=== PATIENT | male | born 1945 | race Caucasian/White ===

== ENCOUNTER 2024-12-18 06:26 | Observation (INO) | payer MEDICARE, BC ==
[2024-12-16 12:33] LABS: BASOPHILS % 0.6 % (0.0-1.0); EOSINOPHILS # (AUTO) 0.3 (0.0-0.4); EOSINOPHILS % 3.6 % (0.0-6.0); HEMATOCRIT 43.6 % (38.2-49.6); HEMOGLOBIN 14.8 g/dL (14.0-18.0); LYMPHOCYTES # (AUTO) 1.6 (1.0-3.2); LYMPHOCYTES % 23.3 % (18.0-39.1); MEAN CORPUSCULAR HGB CONC 33.9 g/dL (31-35); MEAN CORPUSCULAR VOLUME 100.2 fL (81-99); MONOCYTES # (AUTO) 0.4 (0.2-0.8); MONOCYTES % 6.3 % (4.4-11.3); NEUTROPHILS # (AUTO) 4.6 (2.1-6.9); NEUTROPHILS % 66.1 % (38.7-80.0); PLATELET COUNT 270 x10e3/uL (140-360); RED BLOOD COUNT 4.35 x10e6/uL (4.3-5.7); WHITE BLOOD COUNT 6.95 x10e3/uL (4.8-10.8)
[~2024-12-18 06:26] MED LIST: AMLODIPINE BESYL5 MG PO; ASPIRIN81 MG PO; CLOPIDOGREL75 MG PO; EYE MULTIVITAM1 EAC4; FLOMAX0.4 MG PO; LORAZEPAM2 MG/1 M2; METOPROLOL TART25 MG PO; MULTI-VITAMIN1 EACH PO; SIMVASTATIN40 MG PO
[2024-12-18] MEDS: LACTATED RINGER'S 1,000 ML ONE (07:00)
[2024-12-18] MEDS: CEFAZOLIN SODIUM 2 GM ONE (07:01)
[2024-12-18] MEDS ORDERED: SEVOFLURANE INHAL SOLN 250 ML PEN BTL ONE (07:15)
[2024-12-18] MEDS ORDERED: ONDANSETRON HCL INJ 2MG/ML 2ML 2 MG/ML VIAL IV PRN (07:15)
[2024-12-18] MEDS ORDERED: PROPOFOL IV EMULSION 10 MG/ML 20 ML VIAL ONE (07:15)
[2024-12-18] MEDS ORDERED: ACETAMINOPHEN 1000 MG/100 ML 100 ML IV ONE (07:15)
[2024-12-18] MEDS ORDERED: HYDROCODONE/APAP 7.5MG-325MG 1 EA TAB PO PRN (07:15)
[2024-12-18] MEDS ORDERED: DOCUSATE SODIUM 100 MG CAP PO PRN (07:15)
[2024-12-18] MEDS ORDERED: DEXAMETHASONE SOD PHOS INJ 4 MG/ML SDV ONE (07:16)
[2024-12-18] MEDS ORDERED: ONDANSETRON HCL INJ 2MG/ML 2ML 2 MG/ML VIAL ONE (07:16)
[2024-12-18] MEDS ORDERED: FENTANYL CITRATE/PF 100MCG/2 ML INJ ONE ×2 (07:16→07:39)
[2024-12-18] MEDS ORDERED: BUPIVACAINE/EPI 0.5% 30ML SDV-MPF INJ ONE (07:39)
[2024-12-18] MEDS ORDERED: ROPIVACAINE/EPI/CLONIDINE/KET 50 ML SYRINGE INJ ONE (08:00)
[2024-12-18] MEDS ORDERED: ASPIRIN 325 MG TAB PO SCH (09:00)
[2024-12-18] MEDS ORDERED: EPHEDRINE SULFATE INJ 50 MG/ML VIAL ONE (10:28)
[2024-12-18 11:15] VITALS: TEMP 97.8
[2024-12-18 15:30] VITALS: BP 127/76; PULSE 70; RESP 18; O2SAT 97
[2024-12-18] MEDS ORDERED: TAMSULOSIN HCL 0.4 MG CAP PO SCH (17:00)
[2024-12-18] MEDS ORDERED: METOPROLOL TARTRATE 25 MG TAB PO SCH (17:00)
[2024-12-18] MEDS ORDERED: SIMVASTATIN 40 MG TAB PO SCH (21:00)
[2024-12-19] MEDS ORDERED: ACETAMINOPHEN 1000 MG/100 ML IV PRN (07:15)
[2024-12-19] MEDS ORDERED: ASPIRIN 81 MG CHEW TAB PO SCH (09:00)
[2024-12-19] MEDS ORDERED: AMLODIPINE BESYLATE 5 MG TAB PO SCH (09:00)
[2024-12-19] MEDS ORDERED: MULTIVITAMINS/MINERALS TAB PO SCH (09:00)
[2024-12-19] MEDS ORDERED: CLOPIDOGREL BISULFATE 75 MG TAB PO SCH (09:00)
== END 2024-12-18 16:45 | disposition home health service (06) ==
LOC: OR 06:26 → PACU V 07:04
PROVIDERS: ADMIT Orthopaedic Surgery Adult Reconstructive Orthopaedic Surgery; ATTEND Orthopaedic Surgery Adult Reconstructive Orthopaedic Surgery
DX: M16.12 Unilateral primary osteoarthritis, left hip (principal); I10 Essential (primary) hypertension; I25.10 Atherosclerotic heart disease of native coronary artery without angina pectoris; I25.2 Old myocardial infarction; Z79.82 Long term (current) use of aspirin; Z01.810 Encounter for preprocedural cardiovascular examination; Z01.812 Encounter for preprocedural laboratory examination; Z01.818 Encounter for other preprocedural examination
CPT/HCPCS: 27130; 36415; 71046; 72170; 85025; 86850; 86900; 93005; 97110; 97116 ×2; 97161; 97530 ×2; C1713 ×2; C1776 ×4; G0378; J0131; J1100; J2405; J2704; J3010; J7121